=== PATIENT | male | born 1995 | race African-American/Black ===

== ENCOUNTER 2025-02-01 13:10 | Inpatient (IN) | payer OTHER ==
[~2025-02-01] VITALS: Ht 177.8 cm; Wt 68.1 kg
[2025-02-01 16:28] LABS: PLATELET COUNT (AUTO) 391 K/uL (150-450); RED BLOOD CELL COUNT(AUTO) 4.38 MIL/uL (4.50-5.90); RED CELL DISTRIBUTION WIDTH 13.0 % (11.5-14.5); WHITE BLOOD COUNT (AUTO) 6.2 K/uL (4.5-11.0)
[2025-02-01] MEDS: SODIUM CHLORIDE 0.9% 2,000 ML IV ONE (16:28)
[2025-02-01] MEDS: ONDANSETRON HCL 4 MG/2 ML VIAL IVP ONE (16:28)
[2025-02-01] MEDS: IOHEXOL 9 MG/ML 500 ML BOTTLE PO ONE (16:28)
[2025-02-01 16:46] LABS: CALCIUM, TOTAL 8.6 mg/dL (8.8-10.5); CREATININE 1.08 mg/dL (0.60-1.30); GLOMERULAR FILTR. RATE CALC > 60 mL/min (>60); GLUCOSE,RANDOM 92 mg/dL (70-110); SODIUM SERUM 136 mmol/L (136-145); UREA NITROGEN, BLOOD 10 mg/dL (7-18)
[2025-02-01 17:03] LABS: LACTIC ACID 0.8 mmol/L (0.4-2.0)
[2025-02-01] MEDS ORDERED: 0.9% SODIUM CHLORIDE 10 ML SYRINGE IVP ONE (17:56)
[2025-02-01] MEDS ORDERED: IOHEXOL 350 MG/ML 100 ML VIAL ONE (17:56)
[2025-02-01] MEDS ORDERED: SODIUM CHLORIDE 0.9% 100 ML ONE (17:56)
[2025-02-01] MEDS ORDERED: ONDANSETRON HCL 4 MG/2 ML VIAL IVP PRN (18:45)
[2025-02-01] MEDS: DOCUSATE SODIUM 100 MG CAPSULE PO SCH (20:26)
[2025-02-01 21:15] VITALS: BP 115/66; PULSE 65; RESP 18; TEMP 98.6; O2SAT 100
[2025-02-01 21:17] LABS: APPEARANCE,URINE CLEAR (CLEAR); GLUCOSE, URINE (UA) NEGATIVE (NEGATIVE); LEUKOCYTE ESTERASE ,URINE NEGATIVE (NEGATIVE); NITRATE,URINE NEGATIVE (NEGATIVE); OCCULT BLOOD,URINE NEGATIVE (NEGATIVE); PH,URINE DRUG SCREEN 6.0 (5.0-8.0); SPECIFIC GRAVITIY, URINE 1.046 (1.003-1.030)
[2025-02-01] MEDS: ACETAMINOPHEN 325 MG TABLET PO PRN (21:19)
[2025-02-01 21:22] LABS: ALCOHOL, URINE DRUG SCREEN NEGATIVE (NEGATIVE); AMPHET/METH SCREEN,URINE NEGATIVE (NEGATIVE); BARBITURATE SCREEN, URINE NEGATIVE (NEGATIVE); CANNABINOID SCREEN,URINE NEGATIVE (NEGATIVE); COCAINE SCREEN,URINE NEGATIVE (NEGATIVE); METHADONE SCREEN, URINE NEGATIVE (NEGATIVE)
[2025-02-01 21:34] LABS: SQUAMOUS EPITHELIAL CELL,UR Rare /LPF (None Seen)
[2025-02-01] MEDS: HEPARIN SODIUM,PORCINE 5,000 UNITS/ML VIAL SQ SCH (23:44)
[2025-02-02 05:57] VITALS: BP 114/65; PULSE 68; RESP 18; TEMP 98.2; O2SAT 100
[2025-02-02 07:20] LABS: PLATELET COUNT (AUTO) 365 K/uL (150-450); RED BLOOD CELL COUNT(AUTO) 4.09 MIL/uL (4.50-5.90); RED CELL DISTRIBUTION WIDTH 13.1 % (11.5-14.5); WHITE BLOOD COUNT (AUTO) 6.1 K/uL (4.5-11.0)
[2025-02-02 07:29] LABS: CALCIUM, TOTAL 8.6 mg/dL (8.8-10.5); CREATININE 1.01 mg/dL (0.60-1.30); GLOMERULAR FILTR. RATE CALC > 60 mL/min (>60); GLUCOSE,RANDOM 77 mg/dL (70-110); SODIUM SERUM 143 mmol/L (136-145); UREA NITROGEN, BLOOD 8 mg/dL (7-18)
[2025-02-02 08:37] VITALS: BP 108/60; PULSE 58; RESP 18; TEMP 98.4; O2SAT 98
[2025-02-02] MEDS ORDERED: MESALAMINE 400 MG DR CAPSULE PO SCH (10:00)
[2025-02-02] MEDS: PANTOPRAZOLE SODIUM 40 MG DR TABLET PO SCH (10:58)
[2025-02-02 19:45] VITALS: BP 106/50; PULSE 67; RESP 18; TEMP 98.4; O2SAT 98
[2025-02-02] MEDS: MESALAMINE 400 MG DR CAPSULE PO SCH (20:11)
[2025-02-03 04:50] VITALS: BP 106/66; PULSE 56; RESP 18; TEMP 98.2; O2SAT 98
[2025-02-03 08:14] VITALS: BP 106/65; PULSE 59; RESP 18; TEMP 97.9; O2SAT 98
[2025-02-03] MEDS ORDERED: MESA250CR PO (11:25)
[2025-02-03] MEDS ORDERED: ACET-2247 PO (11:27)
[2025-02-03 19:25] VITALS: BP 112/83; PULSE 79; RESP 18; TEMP 98.2; O2SAT 98
== END 2025-02-03 20:00 | DRG 386 ==
LOC: EMS 13:15 → EDH 18:45 → 6S 20:55
PROVIDERS: ADMIT Internal Medicine; ATTEND Internal Medicine
DX: K51.911 Ulcerative colitis, unspecified with rectal bleeding (principal); E87.3 Alkalosis; D64.9 Anemia, unspecified
CPT/HCPCS: 74177; 80048; 80307; 81001; 82271; 83605; 83690; 83735; 85025; 85651; 86140; 96361; 96374; 99285; J1644; J2405; J7050; 36415-L1; 36415-TC